=== PATIENT | female | born 1990 | race Caucasian/White ===

== ENCOUNTER 2020-08-01 21:20 | Emergency (ER) | payer SELFPAY ==
[~2020-08-01 21:20] MED LIST: ALDACTONE50 MG PO; LIPITOR20 MG PO; METFORMIN HCL500 MG PO; SKELAXIN800 MG PO; VOLTAREN **OUT75 MG PO
[2020-08-02] MEDS ORDERED: NORCO 5-325 TA1 EACH PO (07:40)
[2020-08-02] MEDS ORDERED: NAPROXEN500 MG PO (07:40)
== END 2020-08-02 07:53 | disposition home or self-care (01) ==
LOC: FER 21:20
DX: S80.02XA Contusion of left knee, initial encounter (principal); Z88.8 Allergy status to other drugs, medicaments and biological substances; W19.XXXA Unspecified fall, initial encounter; Y92.89 Other specified places as the place of occurrence of the external cause; Y99.0 Civilian activity done for income or pay
CPT/HCPCS: 73560

== ENCOUNTER 2022-01-10 19:24 | Emergency (ER) | payer SELFPAY ==
[~2022-01-10 19:24] MED LIST changes: +NAPROXEN500 MG PO; +NORCO 5-325 TA1 EACH PO
[2022-01-10 20:16] LABS: BASOPHIL 0.4 % (0-2); EOSINOPHIL 1.3 % (0-5); HCT 38.8 % (37.0-47.0); HGB 13.3 g/dl (12.5-16.0); LYMPHOCYTE 33.1 % (15-48); MCH 30.7 pg (25.0-31.0); MCHC 34.3 g/dL (32.0-36.0); MCV 89.6 fL (78.0-100.0); MONOCYTE 5.9 % (0-12); MPV 10.4 fL (6.0-9.5); NRBC 0; PLT 305 K/uL (150-400); RBC 4.33 M/uL (4.20-5.40); RDW 12.2 % (11.5-14.0); WBC 9.2 K/uL (4.0-10.5)
[2022-01-10 20:21] LABS: INR 0.96 (0.9-1.2); PROTHROMBIN TIME 12.5 SECONDS (11.9-13.9); PTT 23.7 SECONDS (24.9-34.6)
[2022-01-10 20:32] LABS: ALBUMIN 3.7 g/dL (3.4-5.0); ALKALINE PHOSHATASE 64 U/L (46-116); ALT 28 U/L (14-59); AST 17 U/L (15-37); BILIRUBIN - TOTAL 0.3 mg/dL (0.2-1.0); BUN 10 mg/dL (7-18); BUN/CREAT RATIO (CALC) 15.9 RATIO; CHLORIDE 103 mmol/L (98-107); CO2 (BICARBONATE) 24 mmol/L (21-32); CREATININE 0.63 mg/dL (0.51-0.95); GLOBULIN (CALCULATION) 3.8 g/dL; GLUCOSE 102 mg/dL (74-106); MAGNESIUM 1.7 mg/dL (1.8-2.4); POTASSIUM 3.5 mmol/L (3.5-5.1); TOTAL PROTEIN 7.5 g/dL (6.4-8.2)
[2022-01-10 20:56] LABS: CORONAVIRUS 2019 SARS-COV-2 NEGATIVE (NEGATIVE); INFLUENZA A NAA NEGATIVE (NEGATIVE)
== END 2022-01-10 23:07 | disposition home or self-care (01) ==
LOC: FER 19:24
PROVIDERS: Internal Medicine
DX: R07.89 Other chest pain (principal); E83.42 Hypomagnesemia; Z20.822 Contact with and (suspected) exposure to COVID-19
CPT/HCPCS: 36415; 71275; 80053; 83735; 83880; 84145; 84484; 85025; 85610; 85730; 93005; J3475; Q9967; U0002